=== PATIENT | female | born 1960 | race Two or more races ===

== ENCOUNTER → 2017-03-23 | Outpatient (CLI) | payer OTHER ==
[~2017-03-23] MED LIST: CYCL5TAB89 OR; IBUP600T27 OR; PAXIL; ZOLP-158 OR
[2017-03-23 07:41] LABS: Basophils # (auto) 0 uL; Basophils % (auto) 0.7 % (0.0-2.0); Eosinophils # (auto) 0.1 uL; Eosinophils % (auto) 2.3 % (0.0-7.0); Hematocrit 41.8 % (36.0-46.0); Lymphocytes # (auto) 1.9 uL; Mean Corpuscular Hemoglobin 29.9 pg (28.0-32.0); Mean Corpuscular Hgb Conc. 33.5 g/dL (32.0-36.0); Mean Corpuscular Volume 89.4 fL (80.0-100.0); Monocytes # (auto) 0.4 uL; Monocytes % (auto) 7.6 % (0.0-12.0); Neutrophils # (auto) 2.9 uL; Neutrophils % (auto) 54.4 % (37.0-80.0); Nucleated Red Blood Cells % 0.1 %; Platelet Count (auto) 246 10^3/uL (140-450); Red Blood Cells 4.68 10^6/uL (4.0-5.20); Red Cell Distribution Width 12.5 % (11.8-14.3); Urine Bacteria NONE SEEN /hpf (None Seen); Urine Blood Negative /uL (Negative); Urine Specific Gravity 1.002 (1.001-1.035); Urine WBC <1 /hpf (0 - 5); White Blood Cell 5.3 10^3/uL (4.4-10.8)
[2017-03-23 08:30] LABS: Albumin 3.7 g/dL (3.4-5.0); BUN/Creatinine Ratio 17.3; Bilirubin, Total 0.5 mg/dL (0.2-1.0); Calcium 9.2 mg/dL (8.5-10.1); Potassium 4.5 mmol/L (3.5-5.1); Total Protein 7.5 g/dL (6.4-8.2)
== END | disposition home or self-care (01) ==
LOC: LAB 07:07
PROVIDERS: ATTEND Internal Medicine
DX: D64.9 Anemia, unspecified (principal); R53.83 Other fatigue
CPT/HCPCS: 36415; 80053; 80061; 81001; 84439; 84443; 85025; 85652

== ENCOUNTER → 2018-03-23 | Outpatient (CLI) | payer OTHER ==
[2018-03-23 07:44] LABS: Urine WBC None Seen /hpf (0 - 5)
[2018-03-23 07:50] LABS: Basophils # (auto) 0 uL; Basophils % (auto) 0.9 % (0.0-2.0); Eosinophils # (auto) 0.2 uL; Eosinophils % (auto) 4.5 % (0.0-7.0); Hemoglobin 14.9 g/dL (12.2-16.2); Lymphocytes # (auto) 1.9 uL; Lymphocytes % (auto) 43.4 % (10.0-50.0); Mean Corpuscular Hemoglobin 30.2 pg (28.0-32.0); Mean Corpuscular Hgb Conc. 33.9 g/dL (32.0-36.0); Mean Corpuscular Volume 89.2 fL (80.0-100.0); Monocytes # (auto) 0.4 uL; Monocytes % (auto) 8.2 % (0.0-12.0); Neutrophils # (auto) 1.9 uL; Nucleated Red Blood Cells % 0.1 %; Platelet Count (auto) 225 10^3/uL (140-450); Red Blood Cells 4.93 10^6/uL (4.0-5.20); Red Cell Distribution Width 12.6 % (11.8-14.3); White Blood Cell 4.3 10^3/uL (4.4-10.8)
[2018-03-23 07:55] LABS: Urine Bacteria NONE SEEN /hpf (None Seen); Urine Blood Negative /uL (Negative); Urine Specific Gravity 1.001 (1.001-1.035)
[2018-03-23 08:25] LABS: Albumin 3.9 g/dL (3.4-5.0); Calcium 9.1 mg/dL (8.5-10.1); Potassium 4.5 mmol/L (3.5-5.1)
[2018-03-23 08:32] LABS: BUN/Creatinine Ratio 11.5; Bilirubin, Total 0.6 mg/dL (0.2-1.0); Total Protein 7.6 g/dL (6.4-8.2)
== END | disposition home or self-care (01) ==
LOC: LAB 07:22
PROVIDERS: ATTEND Internal Medicine
DX: Z00.01 Encounter for general adult medical examination with abnormal findings (principal); G47.00 Insomnia, unspecified
CPT/HCPCS: 36415; 80053; 80061; 81001; 84439; 84443; 85025; 85652

== ENCOUNTER 2018-09-25 07:53 | Day surgery (SDC) | payer OTHER ==
[2018-09-21 09:11] LABS: Basophils # (auto) 0.1 uL; Basophils % (auto) 1.3 % (0.0-2.0); Eosinophils # (auto) 0.1 uL; Eosinophils % (auto) 1.9 % (0.0-7.0); Hematocrit 42.8 % (36.0-46.0); Hemoglobin 14.6 g/dL (12.2-16.2); Lymphocytes # (auto) 1.7 uL; Lymphocytes % (auto) 38.3 % (10.0-50.0); Mean Corpuscular Hemoglobin 30.4 pg (28.0-32.0); Mean Corpuscular Hgb Conc. 34.1 g/dL (32.0-36.0); Mean Corpuscular Volume 89.1 fL (80.0-100.0); Monocytes # (auto) 0.4 uL; Monocytes % (auto) 8.5 % (0.0-12.0); Neutrophils # (auto) 2.3 uL; Nucleated Red Blood Cells % 0.2 %; Platelet Count (auto) 236 10^3/uL (140-450); Red Blood Cells 4.81 10^6/uL (4.0-5.20); Red Cell Distribution Width 12.4 % (11.8-14.3); White Blood Cell 4.5 10^3/uL (4.4-10.8)
[2018-09-21 09:24] LABS: INR 0.93 (0.9-1.15); Partial Thromboplastin Time 24.1 sec (23.64-32.05)
[~2018-09-25] VITALS: Ht 157.5 cm; Wt 67.6 kg
[~2018-09-25 07:53] MED LIST changes: -CYCL5TAB89 OR; -IBUP600T27 OR; -PAXIL
[2018-09-25] MEDS ORDERED: SODIUM CHLORIDE LOCK 10 ML ONE (08:09)
[2018-09-25] MEDS ORDERED: NALOXONE HCL 0.4 MG/ML VIAL ONE (08:09)
[2018-09-25] MEDS ORDERED: FLUMAZENIL 0.1 MG/ML INJ 10ML MDV IV ONE (08:09)
[2018-09-25] MEDS ORDERED: diphenhdrAMINE HCL 50 MG/1 ML VL ONE (08:11)
[2018-09-25] MEDS: fentaNYL CITRATE 100 MCG/2 ML VL ONE ×3 (09:14→09:25)
[2018-09-25] MEDS: MIDAZOLAM HCL 5 MG/ML-1ML VIAL ONE ×3 (09:14→09:20)
[2018-09-25 09:53] VITALS: BP 119/74
== END 2018-09-25 10:05 | disposition home or self-care (01) ==
LOC: GI 07:53
PROVIDERS: ATTEND Internal Medicine Gastroenterology
DX: Z12.11 Encounter for screening for malignant neoplasm of colon (principal); F32.9 Major depressive disorder, single episode, unspecified; Z86.010 Personal history of colon polyps; Z98.890 Other specified postprocedural states
CPT/HCPCS: 36415; 45378; 85025; 85610; 85730; J1200; J2250; J3010; J7030; 99152

== ENCOUNTER → 2019-06-21 | Outpatient (CLI) | payer OTHER ==
[2019-06-21 08:50] LABS: Basophils # (auto) 0 10 ^3/uL (0-0.2); Basophils % (auto) 0.3 % (0.0-2.0); Eosinophils # (auto) 0.1 10 ^3/uL (0-0.8); Eosinophils % (auto) 1.6 % (0.0-7.0); Hematocrit 43.8 % (36.0-46.0); Hemoglobin 14.7 g/dL (12.2-16.2); Lymphocytes # (auto) 1.6 10 ^3/uL (0.4-5.4); Lymphocytes % (auto) 31.3 % (10.0-50.0); Mean Corpuscular Hgb Conc. 33.7 g/dL (32.0-36.0); Mean Corpuscular Volume 86.2 fL (80.0-100.0); Monocytes # (auto) 0.4 10 ^3/uL (0-1.3); Monocytes % (auto) 8.2 % (0.0-12.0); Neutrophils % (auto) 58.6 % (37.0-80.0); Nucleated Red Blood Cells % 0.5 %; Platelet Count (auto) 237 10^3/uL (140-450); Red Blood Cells 5.08 10^6/uL (4.0-5.20); White Blood Cell 5.1 10^3/uL (4.4-10.8)
[2019-06-21 08:54] LABS: Urine Bacteria NONE SEEN /hpf (None Seen); Urine Blood Negative /uL (Negative); Urine Specific Gravity 1.007 (1.001-1.035); Urine WBC 3 /hpf (0 - 5)
[2019-06-21 09:27] LABS: Potassium 4.1 mmol/L (3.5-5.1)
[2019-06-21 09:42] LABS: Albumin 3.5 g/dL (3.4-5.0); BUN/Creatinine Ratio 9.1; Bilirubin, Total 0.6 mg/dL (0.2-1.0); Calcium 9.1 mg/dL (8.5-10.1); Total Protein 7.6 g/dL (6.4-8.2)
== END | disposition home or self-care (01) ==
LOC: LAB 07:37
PROVIDERS: ATTEND Internal Medicine
DX: F51.01 Primary insomnia (principal); R89.9 Unspecified abnormal finding in specimens from other organs, systems and tissues; R53.83 Other fatigue
CPT/HCPCS: 36415; 80053; 80061; 81001; 82607; 84439; 84443; 85025; 85652

== ENCOUNTER → 2021-03-20 | Outpatient (CLI) | payer OTHER ==
[~2021-03-20] MED LIST changes: -ZOLP-158 OR; +ZOLP5TAB OR
[2021-03-20 11:45] LABS: Basophils # (auto) 0 10 ^3/uL (0-0.2); Basophils % (auto) 0.8 % (0.0-2.0); Eosinophils # (auto) 0.1 10 ^3/uL (0-0.8); Eosinophils % (auto) 1.7 % (0.0-7.0); Hematocrit 41.5 % (36.0-46.0); Hemoglobin 14.3 g/dL (12.2-16.2); Lymphocytes # (auto) 1.6 10 ^3/uL (0.4-5.4); Lymphocytes % (auto) 30.2 % (10.0-50.0); Mean Corpuscular Hemoglobin 29.9 pg (28.0-32.0); Mean Corpuscular Hgb Conc. 34.4 g/dL (32.0-36.0); Monocytes # (auto) 0.3 10 ^3/uL (0-1.3); Monocytes % (auto) 6.3 % (0.0-12.0); Neutrophils # (auto) 3.2 10 ^3/uL (1.6-8.6); Nucleated Red Blood Cells % 0.1 %; Red Blood Cells 4.77 10^6/uL (4.0-5.20); Red Cell Distribution Width 12.7 % (11.8-14.3); White Blood Cell 5.2 10^3/uL (4.4-10.8)
== END | disposition home or self-care (01) ==
LOC: LAB 09:42
PROVIDERS: ATTEND Internal Medicine
DX: D72.819 Decreased white blood cell count, unspecified (principal); L30.9 Dermatitis, unspecified
CPT/HCPCS: 36415; 82607; 83615; 85025

== ENCOUNTER → 2021-11-19 | Outpatient (CLI) | payer OTHER ==
[2021-11-19 07:30] LABS: Basophils # (auto) 0 10 ^3/uL (0-0.2); Basophils % (auto) 1.1 % (0.0-2.0); Eosinophils # (auto) 0.1 10 ^3/uL (0-0.8); Eosinophils % (auto) 3.5 % (0.0-7.0); Hematocrit 41.2 % (36.0-46.0); Hemoglobin 14.1 g/dL (12.2-16.2); Lymphocytes # (auto) 1.7 10 ^3/uL (0.4-5.4); Mean Corpuscular Hemoglobin 30.1 pg (28.0-32.0); Mean Corpuscular Hgb Conc. 34.3 g/dL (32.0-36.0); Mean Corpuscular Volume 87.7 fL (80.0-100.0); Monocytes # (auto) 0.3 10 ^3/uL (0-1.3); Monocytes % (auto) 7.8 % (0.0-12.0); Neutrophils # (auto) 1.7 10 ^3/uL (1.6-8.6); Neutrophils % (auto) 44.6 % (37.0-80.0); Red Cell Distribution Width 12.4 % (11.8-14.3); White Blood Cell 3.9 10^3/uL (4.4-10.8)
[2021-11-19 07:37] LABS: Urine Bacteria NONE SEEN /hpf (None Seen); Urine Blood Negative /uL (Negative); Urine Specific Gravity 1.007 (1.001-1.035); Urine WBC <1 /hpf (0 - 5)
[2021-11-19 08:32] LABS: Albumin 3.6 g/dL (3.4-5.0); Potassium 3.9 mmol/L (3.5-5.1)
[2021-11-19 08:40] LABS: BUN/Creatinine Ratio 12.8; Bilirubin, Total 0.4 mg/dL (0.2-1.0); Calcium 9.1 mg/dL (8.5-10.1); Total Protein 6.8 g/dL (6.4-8.2)
== END | disposition home or self-care (01) ==
LOC: LAB 06:56
PROVIDERS: ATTEND Internal Medicine
DX: L30.9 Dermatitis, unspecified (principal); E78.00 Pure hypercholesterolemia, unspecified
CPT/HCPCS: 36415; 80053; 80061; 81001; 83516; 84439; 84443; 85025; 85652; 86256

== ENCOUNTER → 2022-11-22 | Outpatient (CLI) | payer OTHER ==
[2022-11-22 09:40] LABS: Basophils # (auto) 0 10 ^3/uL (0-0.2); Basophils % (auto) 0.8 % (0.0-2.0); Eosinophils # (auto) 0.2 10 ^3/uL (0-0.8); Eosinophils % (auto) 4.7 % (0.0-7.0); Hematocrit 42.5 % (36.0-46.0); Hemoglobin 14.5 g/dL (12.2-16.2); Lymphocytes # (auto) 1.9 10 ^3/uL (0.4-5.4); Lymphocytes % (auto) 39.2 % (10.0-50.0); Mean Corpuscular Hemoglobin 30.2 pg (28.0-32.0); Mean Corpuscular Hgb Conc. 34.2 g/dL (32.0-36.0); Mean Corpuscular Volume 88.1 fL (80.0-100.0); Monocytes # (auto) 0.3 10 ^3/uL (0-1.3); Monocytes % (auto) 7.1 % (0.0-12.0); Neutrophils # (auto) 2.3 10 ^3/uL (1.6-8.6); Neutrophils % (auto) 48.2 % (37.0-80.0); Nucleated Red Blood Cells % 0.1 %; Red Blood Cells 4.82 10^6/uL (4.0-5.20); Red Cell Distribution Width 12.4 % (11.8-14.3); White Blood Cell 4.7 10^3/uL (4.4-10.8)
[2022-11-22 10:30] LABS: Erythrocyte Sedimentation Rate 10 mm/hr (0-20)
[2022-11-22 10:42] LABS: Alanine Aminotransferase 29 U/L (7-40); Albumin 4.3 g/dL (3.2-4.8); Alkaline Phosphatase 84 U/L (46-116); Anion Gap 7 (5-15); Aspartate Aminotransferase 18 U/L (13-40); BUN/Creatinine Ratio 11.1 (10.0-20.0); Blood Urea Nitrogen 9 mg/dL (9-23); Calcium 9.7 mg/dL (8.5-10.1); Carbon Dioxide 26 mmol/L (20-30); Chloride 105 mmol/L (98-107); Cholesterol 214 mg/dL (< 200); Glucose 88 mg/dL (74-106); HDL Cholesterol 67 mg/dL (40-59); LDL Cholesterol 125 mg/dL (< 100); Sodium 138 mmol/L (136-145); Triglycerides 201 mg/dL (< 150)
[2022-11-22 10:43] LABS: Bilirubin, Total 0.7 mg/dL (0.2-1.0); Total Protein 7.2 g/dL (5.7-8.2)
[2022-11-22 15:49] LABS: Urine Bacteria FEW /hpf (None Seen); Urine Blood Negative /uL (Negative); Urine Clarity Clear (Clear); Urine Color Yellow (Yellow); Urine Protein, UAD Negative (Negative); Urine Specific Gravity 1.015 (1.001-1.035); Urine Urobilinogen Normal (Negative); Urine WBC 1 /hpf (0 - 5); Urine pH 7.5 (5.0-8.0)
== END | disposition home or self-care (01) ==
LOC: LAB 09:09
PROVIDERS: ATTEND Internal Medicine
DX: Z00.00 Encounter for general adult medical examination without abnormal findings (principal); M85.80 Other specified disorders of bone density and structure, unspecified site; L40.9 Psoriasis, unspecified
CPT/HCPCS: 36415; 80053; 80061; 81001; 84439; 84443; 85025; 85652

== ENCOUNTER → 2023-08-10 | Outpatient (CLI) | payer OTHER ==
[2023-08-10 08:36] LABS: Urine Bacteria None Seen /hpf (None Seen)
[2023-08-10 08:47] LABS: Basophils # (auto) 0 10 ^3/uL (0-0.2); Basophils % (auto) 0.5 % (0.0-2.0); Eosinophils # (auto) 0.2 10 ^3/uL (0-0.8); Eosinophils % (auto) 3.8 % (0.0-7.0); Hematocrit 40.7 % (36.0-46.0); Hemoglobin 13.9 g/dL (12.2-16.2); Lymphocytes # (auto) 1.9 10 ^3/uL (0.4-5.4); Lymphocytes % (auto) 38.2 % (10.0-50.0); Mean Corpuscular Hemoglobin 29.8 pg (28.0-32.0); Mean Corpuscular Hgb Conc. 34.2 g/dL (32.0-36.0); Mean Corpuscular Volume 87.2 fL (80.0-100.0); Monocytes # (auto) 0.4 10 ^3/uL (0-1.3); Monocytes % (auto) 8.1 % (0.0-12.0); Neutrophils # (auto) 2.4 10 ^3/uL (1.6-8.6); Neutrophils % (auto) 49.4 % (37.0-80.0); Red Blood Cells 4.67 10^6/uL (4.0-5.20); Red Cell Distribution Width 13.5 % (11.8-14.3); White Blood Cell 4.9 10^3/uL (4.4-10.8)
[2023-08-10 08:56] LABS: Urine Blood Negative /uL (Negative); Urine Clarity Clear (Clear); Urine Protein, UAD Negative (Negative); Urine Specific Gravity 1.004 (1.001-1.035); Urine Urobilinogen Normal (Negative); Urine WBC 1 /hpf (0 - 5)
[2023-08-10 09:13] LABS: Urine Color STRAW (Yellow)
[2023-08-10 09:17] LABS: Erythrocyte Sedimentation Rate 8 mm/hr (0-20)
[2023-08-10 09:39] LABS: Alanine Aminotransferase 28 U/L (7-40); Albumin 4.2 g/dL (3.2-4.8); Alkaline Phosphatase 90 U/L (46-116); Anion Gap 7 (5-15); Aspartate Aminotransferase 18 U/L (13-40); BUN/Creatinine Ratio 11.5 (10.0-20.0); Bilirubin, Total 0.6 mg/dL (0.2-1.0); Blood Urea Nitrogen 9 mg/dL (9-23); Calcium 9.8 mg/dL (8.5-10.1); Carbon Dioxide 25 mmol/L (20-30); Chloride 104 mmol/L (98-107); Cholesterol 223 mg/dL (< 200); Glucose 86 mg/dL (74-106); HDL Cholesterol 62 mg/dL (40-59); LDL Cholesterol 152 mg/dL (< 100); Potassium 3.9 mmol/L (3.5-5.1); Sodium 136 mmol/L (136-145); Triglycerides 164 mg/dL (< 150)
[2023-08-10 09:40] LABS: Thyroid Stimulating Hormone 1.79 uIU/mL (0.55-4.78)
[2023-08-11 08:06] LABS: Complement C3 126 mg/dL (82-167); Rheumatoid Arthritis Factor <10.0 IU/mL (<14.0); Thyroid Peroxidase (TPO) Ab 18 IU/mL (0-34)
[2023-08-11 10:06] LABS: Anti-Nuclear Antibody Direct Positive (Negative); Anti-dsDNA Antibody 1 IU/mL (0-9); Antiscleroderma-70 Antibody 1.1 AI (0.0-0.9); RNP Antibody <0.2 AI (0.0-0.9); Sjogren's Anti-SS-A Antibody <0.2 AI (0.0-0.9); Sjogren's Anti-SS-B Antibody <0.2 AI (0.0-0.9); Smith Antibody <0.2 AI (0.0-0.9)
[2023-08-11 15:07] LABS: Hepatitis B Core Total Antibod Negative (Negative)
[2023-08-12 13:06] LABS: Actin (Smooth Muscle) Antibody 4 Units (0-19); Mitochondrial (M2) Antibody <20.0 Units (0.0-20.0)
== END | disposition home or self-care (01) ==
LOC: LAB 08:23
PROVIDERS: ATTEND Internal Medicine
DX: Z00.00 Encounter for general adult medical examination without abnormal findings (principal); R21 Rash and other nonspecific skin eruption
CPT/HCPCS: 36415; 80053; 80061; 81001; 83615; 84439; 84443; 85025; 85652; 86160; 86225; 86235; 86376; 86431; 86705; 86706; 86803; 87340

== ENCOUNTER → 2023-11-16 | Outpatient (CLI) | payer OTHER ==
[2023-11-16 12:06] LABS: Basophils # (auto) 0.1 10 ^3/uL (0-0.2); Basophils % (auto) 0.8 % (0.0-2.0); Eosinophils # (auto) 0.1 10 ^3/uL (0-0.8); Eosinophils % (auto) 1.7 % (0.0-7.0); Hemoglobin 14.5 g/dL (12.2-16.2); Lymphocytes # (auto) 2.1 10 ^3/uL (0.4-5.4); Lymphocytes % (auto) 26.4 % (10.0-50.0); Mean Corpuscular Hemoglobin 30.6 pg (28.0-32.0); Mean Corpuscular Hgb Conc. 34.6 g/dL (32.0-36.0); Mean Corpuscular Volume 88.5 fL (80.0-100.0); Monocytes # (auto) 0.6 10 ^3/uL (0-1.3); Monocytes % (auto) 7.9 % (0.0-12.0); Neutrophils % (auto) 63.2 % (37.0-80.0); Nucleated Red Blood Cells % 0.1 %; Platelet Count (auto) 279 10^3/uL (140-450); Red Blood Cells 4.75 10^6/uL (4.0-5.20); Red Cell Distribution Width 12.3 % (11.8-14.3); White Blood Cell 7.9 10^3/uL (4.4-10.8)
[2023-11-16 12:25] LABS: Alanine Aminotransferase 23 U/L (7-40); Albumin 4.3 g/dL (3.2-4.8); Alkaline Phosphatase 98 U/L (46-116); Anion Gap 7 (5-15); Aspartate Aminotransferase 19 U/L (13-40); BUN/Creatinine Ratio 17.9 (10.0-20.0); Bilirubin, Total 0.5 mg/dL (0.2-1.0); Blood Urea Nitrogen 15 mg/dL (9-23); Calcium 10.2 mg/dL (8.7-10.4); Carbon Dioxide 25 mmol/L (20-31); Chloride 104 mmol/L (98-107); Glucose 87 mg/dL (74-106); Potassium 4.2 mmol/L (3.5-5.1); Sodium 136 mmol/L (136-145); Total Protein 7.5 g/dL (5.7-8.2)
[2023-11-17 10:36] LABS: Hepatitis B Surface Antibody Negative (Negative)
[2023-11-17 10:48] LABS: Hepatitis B Surface Antigen Negative (Negative)
[2023-11-17 11:10] LABS: Hepatitis C Antibody Negative (Negative)
[2023-11-19 05:08] LABS: QuantiFERON-TB Gold Plus Negative (Negative)
== END | disposition home or self-care (01) ==
LOC: LAB 10:54
PROVIDERS: ATTEND Dermatology
DX: L40.0 Psoriasis vulgaris (principal)
CPT/HCPCS: 36415; 80053; 85025; 86706; 86803; 87340

== ENCOUNTER → 2023-11-28 | Outpatient (CLI) | payer OTHER ==
[2023-11-28 14:39] LABS: Basophils # (auto) 0 10 ^3/uL (0-0.2); Basophils % (auto) 0.7 % (0.0-2.0); Eosinophils # (auto) 0.2 10 ^3/uL (0-0.8); Eosinophils % (auto) 3.7 % (0.0-7.0); Hematocrit 39.4 % (36.0-46.0); Hemoglobin 13.6 g/dL (12.2-16.2); Lymphocytes # (auto) 2.3 10 ^3/uL (0.4-5.4); Lymphocytes % (auto) 40.8 % (10.0-50.0); Mean Corpuscular Hemoglobin 30.1 pg (28.0-32.0); Mean Corpuscular Hgb Conc. 34.4 g/dL (32.0-36.0); Mean Corpuscular Volume 87.3 fL (80.0-100.0); Monocytes # (auto) 0.4 10 ^3/uL (0-1.3); Monocytes % (auto) 7.9 % (0.0-12.0); Neutrophils # (auto) 2.7 10 ^3/uL (1.6-8.6); Neutrophils % (auto) 46.9 % (37.0-80.0); Platelet Count (auto) 246 10^3/uL (140-450); Red Blood Cells 4.51 10^6/uL (4.0-5.20); Red Cell Distribution Width 12.5 % (11.8-14.3); White Blood Cell 5.7 10^3/uL (4.4-10.8)
[2023-11-28 15:52] LABS: Alanine Aminotransferase 23 U/L (7-40); Albumin 4.2 g/dL (3.2-4.8); Alkaline Phosphatase 100 U/L (46-116); Anion Gap 4 (5-15); Aspartate Aminotransferase 20 U/L (13-40); BUN/Creatinine Ratio 15.4 (10.0-20.0); Blood Urea Nitrogen 12 mg/dL (9-23); Calcium 9.8 mg/dL (8.7-10.4); Carbon Dioxide 27 mmol/L (20-31); Chloride 108 mmol/L (98-107); Glucose 84 mg/dL (74-106); Sodium 139 mmol/L (136-145)
[2023-11-28 15:53] LABS: Bilirubin, Total 0.3 mg/dL (0.2-1.0)
== END | disposition home or self-care (01) ==
LOC: LAB 14:21
PROVIDERS: ATTEND Dermatology
DX: I40.0 Infective myocarditis (principal)
CPT/HCPCS: 36415; 80053; 85025

== ENCOUNTER → 2023-12-23 | Outpatient (CLI) | payer OTHER ==
[2023-12-23 12:01] LABS: Basophils # (auto) 0 10 ^3/uL (0-0.2); Basophils % (auto) 0.5 % (0.0-2.0); Eosinophils # (auto) 0.2 10 ^3/uL (0-0.8); Eosinophils % (auto) 2.6 % (0.0-7.0); Hematocrit 40.4 % (36.0-46.0); Hemoglobin 14.1 g/dL (12.2-16.2); Lymphocytes # (auto) 1.8 10 ^3/uL (0.4-5.4); Mean Corpuscular Hemoglobin 30.5 pg (28.0-32.0); Mean Corpuscular Hgb Conc. 34.9 g/dL (32.0-36.0); Mean Corpuscular Volume 87.6 fL (80.0-100.0); Monocytes # (auto) 0.5 10 ^3/uL (0-1.3); Monocytes % (auto) 7.9 % (0.0-12.0); Platelet Count (auto) 276 10^3/uL (140-450); Red Blood Cells 4.61 10^6/uL (4.0-5.20); Red Cell Distribution Width 12.4 % (11.8-14.3); White Blood Cell 6.5 10^3/uL (4.4-10.8)
[2023-12-23 12:42] LABS: Alanine Aminotransferase 31 U/L (7-40); Albumin 4.2 g/dL (3.2-4.8); Alkaline Phosphatase 110 U/L (46-116); Anion Gap 5 (5-15); Aspartate Aminotransferase 22 U/L (13-40); BUN/Creatinine Ratio 12.3 (10.0-20.0); Bilirubin, Total 0.5 mg/dL (0.2-1.0); Blood Urea Nitrogen 10 mg/dL (9-23); Calcium 9.6 mg/dL (8.7-10.4); Carbon Dioxide 26 mmol/L (20-31); Chloride 106 mmol/L (98-107); Glucose 93 mg/dL (74-106); Potassium 4.3 mmol/L (3.5-5.1); Sodium 137 mmol/L (136-145); Total Protein 7.1 g/dL (5.7-8.2)
== END | disposition home or self-care (01) ==
LOC: LAB 11:36
PROVIDERS: ATTEND Dermatology
DX: L40.0 Psoriasis vulgaris (principal)
CPT/HCPCS: 36415; 80053; 85025